=== PATIENT | male | born 1950 | race Caucasian/White ===

== ENCOUNTER 2017-12-27 20:43 | Inpatient (IN) | payer BC, OTHER ==
[~2017-12-27] VITALS: Ht 170.2 cm; Wt 85.1 kg
[~2017-12-27 20:43] MED LIST: PREDNISONE50 MG PO
[2017-12-27 21:35] LABS: AMYLASE 24 IU/L (1-118)
[2017-12-27 21:39] LABS: PTT 30.1 SEC (25-37)
[2017-12-27 21:44] LABS: LIPASE 40 U/L (1.0-51.0)
[2017-12-27 21:49] LABS: TROP-I INTERPRETATION NEGATIVE; TROPONIN-I < 0.01 ng/mL (0.0-0.30)
[2017-12-27 21:53] LABS: BASOPHIL (%) 0.4 % (0-1); EOSINOPHIL (%) 4.8 % (0-5); EOSINOPHIL COUNT 0.3 K/uL (0-0.3); HEMATOCRIT 45.3 % (38.0-50.0); IMMATURE GRANULOCYTE (%) 0.3 % (0.0-0.7); LYMPHOCYTE (%) 25.9 % (15-42); LYMPHOCYTE COUNT 1.8 K/uL (1.0-2.8); MCH 34.1 PG (29.0-34.0); MCHC 35.3 G/DL (30.0-36.0); MCV 96.6 FL (86-99); MONOCYTE (%) 8.2 % (3-12); MONOCYTE COUNT 0.6 K/uL (0-0.8); NEUTROPHIL (%) 60.4 % (45-76); NEUTROPHIL COUNT 4.1 K/uL (1.8-6.4); PLATELET COUNT 174 K/uL (156-360); RBC DIS.WIDTH-CV 11.9 % (11.8-14.6); RBC DIS.WIDTH-SD 41.5 % (39-53); RED BLOOD COUNT 4.69 M/uL (4.00-5.50); WHITE BLOOD COUNT 6.8 K/uL (4.1-10.2)
[2017-12-27] MEDS ORDERED: TRAZODONE HCL50 MG PO (23:21)
[2017-12-27] MEDS ORDERED: INDERAL LA60 MG PO (23:21)
[2017-12-27] MEDS ORDERED: ABILIFY2 MG PO (23:22)
[2017-12-27] MEDS ORDERED: WELLBUTRIN XL150 MG PO (23:22)
[2017-12-27] MEDS ORDERED: LOPID600 MG PO (23:23)
[2017-12-27] MEDS ORDERED: VALIUM10 MG PO (23:24)
[2017-12-28 05:00] VITALS: BP 177/85
[2017-12-28 06:00] LABS: HEMATOCRIT 43.7 % (38.0-50.0); HEMOGLOBIN 15.2 G/DL (12.5-16.6); MCH 33.6 PG (29.0-34.0); MCHC 34.8 G/DL (30.0-36.0); MCV 96.7 FL (86-99); NRBC (%) 0.5 /100 WBC (0-0); PLATELET COUNT 164 K/uL (156-360); RBC DIS.WIDTH-CV 11.9 % (11.8-14.6); RED BLOOD COUNT 4.52 M/uL (4.00-5.50); WHITE BLOOD COUNT 5.5 K/uL (4.1-10.2)
[2017-12-28 06:20] LABS: TROP-I INTERPRETATION NEGATIVE; TROPONIN-I < 0.01 ng/mL (0.0-0.30)
[2017-12-28 06:45] LABS: HDL CHOLESTEROL 28 MG/DL (Desirable>=40); NON-HDL CHOLESTEROL 158 mg/dL (Desirable<160); TOTAL CHOLESTEROL 186 mg/dL (Desirable<200); TRIGLYCERIDES 457 MG/DL (Normal: <150)
[2017-12-28 07:51] LABS: FOLIC ACID (FOLATE) 6.7 NG/ML (5.0-22.0)
[2017-12-28 08:13] LABS: ERTH.SED.RATE 21 MM/HR (0-20)
[2017-12-28 08:25] VITALS: BP 171/100
[2017-12-28 09:04] VITALS: BP 150/80
[2017-12-28 11:56] LABS: HEMOGLOBIN A1c (GLYCOHEMOGLOB) 5.6 % (Below 5.7)
[2017-12-28 12:52] VITALS: BP 180/90
[2017-12-28 15:11] VITALS: BP 142/93
[2017-12-28 20:23] VITALS: BP 155/85
[2017-12-29 00:17] VITALS: BP 168/97
[2017-12-29 03:54] VITALS: BP 153/89
[2017-12-29 07:54] VITALS: BP 165/90
[2017-12-29 11:48] VITALS: BP 160/95
[2017-12-29] MEDS ORDERED: DOXYCYCLINE HY100 MG PO (12:10)
== END 2017-12-29 14:37 | disposition home or self-care (01) | DRG 153 ==
LOC: EME 20:43 → ENRESERV 12-28 02:31 → EDOF 12-28 02:37 → 5SOUTH 12-28 02:37 → ENRESERV 12-28 02:55 → 5SOUTH 12-28 04:37 → ENPENDDIS 12-29 13:14 → 5SOUTH 12-29 14:37
PROVIDERS: Emergency Medicine; Hospitalist
DX: J01.30 Acute sphenoidal sinusitis, unspecified (principal); G20 Parkinson's disease; H53.40 Unspecified visual field defects; R27.0 Ataxia, unspecified; R47.81 Slurred speech; E78.5 Hyperlipidemia, unspecified; I10 Essential (primary) hypertension; L72.3 Sebaceous cyst; K59.00 Constipation, unspecified; I27.20 Pulmonary hypertension, unspecified; F41.0 Panic disorder [episodic paroxysmal anxiety]; F32.9 Major depressive disorder, single episode, unspecified; Z88.0 Allergy status to penicillin; Z82.3 Family history of stroke
CPT/HCPCS: 70450; 70496; 70498; 70551; 80047; 80061; 81003; 82150; 82607; 82746; 83036; 83690; 83735; 84484; 85025; 85027; 85610; 85651; 85730; 93306; 95819; 99281; 99285; J1650